=== PATIENT | female | born 1980 | race Asian ===

== ENCOUNTER 2025-05-21 21:12 | Inpatient (IN) | payer MEDICAID ==
[~2025-05-21] VITALS: Ht 167.6 cm; Wt 54.4 kg
[2025-05-21 21:35] LABS: *BILIRUBIN,URIN NEGATIVE (NEGATIVE); *BLOOD, URINE NEGATIVE (NEGATIVE); *CLARITY,URINE CLEAR (CLEAR); *COLOR,URINE YELLOW (YELLOW); *KETONES,URINE NEGATIVE (NEGATIVE); *PROTEIN,URINE NEGATIVE (NEGATIVE); *UROBILINOGEN,URINE 0.2 E.U./dl (NORMAL); LEUKOCYTE ESTERASE ,URINE 1+ (NEGATIVE); NITRITE, URINE NEGATIVE (NEGATIVE); UGLUCOSE NEGATIVE (NEGATIVE)
[2025-05-21 21:36] LABS: *URINE HCG, QUAL NEGATIVE (NEGATIVE)
[2025-05-21 21:45] LABS: SQUAMOUS EPITHELIAL CELL,UR FEW /HPF (NONE SEEN)
[2025-05-21] MEDS ORDERED: ASPIRIN 81 MG TAB.CHEW ONE (21:47)
[2025-05-21] MEDS ORDERED: CLONIDINE HCL 0.1 MG TABLET ONE (21:47)
[2025-05-21] MEDS ORDERED: HYDROCODONE/APAP 5-325MG TABLET ONE (21:48)
[2025-05-21] MEDS: ASPIRIN 81 MG TAB.CHEW PO ONE (21:50)
[2025-05-21] MEDS: CLONIDINE HCL 0.1 MG TABLET PO ONE (21:51)
[2025-05-21] MEDS: HYDROCODONE/APAP 5-325MG TABLET PO ONE (21:51)
[2025-05-21 21:55] LABS: PLATELET COUNT (AUTO) 407 K/uL (179-408); RED BLOOD CELL COUNT(AUTO) 4.45 MIL/uL (3.63-4.92); RED CELL DISTRIBUTION WIDTH 13.1 % (12.3-17.7); WHITE BLOOD COUNT (AUTO) 8.8 K/uL (3.8-11.8)
[2025-05-21 22:01] LABS: CREATININE 0.6 mg/dL (0.6-1.3); SODIUM SERUM 140 mmol/L (136-145); UREA NITROGEN, BLOOD 10 mg/dL (7-18)
[2025-05-21 22:06] LABS: ASPARTATE AMINOTRANSFERASE 12 U/L (15-37); TOTAL PROTEIN, SERUM 8.3 g/dL (6.4-8.2)
[2025-05-21] MEDS ORDERED: NITROGLYCERIN 0.4 MG/TAB BOTTLE SL ONE (22:53)
[2025-05-21] MEDS ORDERED: NITROGLYCERIN OINT 1 GM PACKET TP ONE (22:54)
[2025-05-21] MEDS: NITROGLYCERIN OINT 1 GM PACKET TP ONE (22:59)
[2025-05-21] MEDS: NITROGLYCERIN 0.4 MG/TAB BOTTLE SL ONE (22:59)
[2025-05-21] MEDS ORDERED: MAGNESIUM HYDROXIDE 30 ML LIQUID UDC PO PRN (23:45)
[2025-05-21] MEDS ORDERED: REMEDY ESSENTIAL ZINC PASTE 113 GM TP PRN (23:45)
[2025-05-21] MEDS ORDERED: ACETAMINOPHEN 325 MG TABLET PO PRN (23:45)
[2025-05-21] MEDS ORDERED: ONDANSETRON 4 MG/2 ML VIAL IV PRN (23:45)
[2025-05-22 00:30] VITALS: BP 106/66
[2025-05-22] MEDS ORDERED: CEFTRIAXONE /D5W 50ML IVPB **ER PYXIS IV ONE (00:50)
[2025-05-22 01:46] VITALS: BP 101/56; TEMP 98.9; O2SAT 97
[2025-05-22] MEDS ORDERED: FLU VACC 2025-26(6MOS UP)/PF 0.5 ML SYRINGE IM ONE (03:15)
[2025-05-22 06:05] VITALS: BP 107/66; TEMP 97.5; O2SAT 100
[2025-05-22 07:13] LABS: PLATELET COUNT (AUTO) 375 K/uL (179-408); RED BLOOD CELL COUNT(AUTO) 4.01 MIL/uL (3.63-4.92); RED CELL DISTRIBUTION WIDTH 13.2 % (12.3-17.7); WHITE BLOOD COUNT (AUTO) 8.1 K/uL (3.8-11.8)
[2025-05-22 07:45] LABS: ASPARTATE AMINOTRANSFERASE 10 U/L (15-37); CREATININE 0.5 mg/dL (0.6-1.3); SODIUM SERUM 143 mmol/L (136-145); TOTAL PROTEIN, SERUM 7.2 g/dL (6.4-8.2); UREA NITROGEN, BLOOD 13 mg/dL (7-18)
[2025-05-22] MEDS: ASPIRIN 81 MG TAB.CHEW PO SCH (09:05)
[2025-05-22 11:56] VITALS: BP 103/51; TEMP 98.1; O2SAT 99
[2025-05-22 15:48] VITALS: BP 122/75; TEMP 97.8; O2SAT 99
[2025-05-22] MEDS ORDERED: HYDR-894 PO (16:15)
== END 2025-05-22 17:10 | disposition home or self-care (01) | DRG 199 ==
LOC: ER 21:12 → TELE3 05-22 00:21 → MEDSURG3 05-22 13:10
PROVIDERS: ADMIT Nurse Practitioner Acute Care; ATTEND Student in an Organized Health Care Education/Training Program
DX: I16.9 Hypertensive crisis, unspecified (principal); I24.89 Other forms of acute ischemic heart disease; I45.10 Unspecified right bundle-branch block; M54.2 Cervicalgia
CPT/HCPCS: 36415; 71045; 83735; 84100; 84484; 84703; 85025; 87086; 93307; G0378; J0696